=== PATIENT | male | born 2000 | race Caucasian/White ===

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

== ENCOUNTER 2020-12-15 21:37 | Emergency (ER) | payer OTHER | END 2020-12-16 10:47 | disposition short-term general hospital (02) | LOC: ER1 21:37 | PROVIDERS: Family Medicine | DX: R45.1 Restlessness and agitation (principal); R46.89 Other symptoms and signs involving appearance and behavior; F84.0 Autistic disorder; U07.1 COVID-19; S60.511A Abrasion of right hand, initial encounter; S50.819A Abrasion of unspecified forearm, initial encounter; F90.9 Attention-deficit hyperactivity disorder, unspecified type; Z79.899 Other long term (current) drug therapy; X58.XXXA Exposure to other specified factors, initial encounter | CPT/HCPCS: 80307; 81001; 99285; U0002 ==